=== PATIENT | female | born 1970 | race African-American/Black ===

== ENCOUNTER 2025-06-02 14:57 | Outpatient (CLI) | payer OTHER | END 2025-06-02 14:58 | disposition home or self-care (01) | LOC: CSHDTY/OP 14:57 | PROVIDERS: ATTEND Nurse Practitioner Family | DX: Z71.3 Dietary counseling and surveillance (principal); E78.5 Hyperlipidemia, unspecified; E66.9 Obesity, unspecified; Z78.0 Asymptomatic menopausal state | CPT/HCPCS: 97802 ==